=== PATIENT | male | born 1995 | race Hispanic/Latino ===

== ENCOUNTER 2021-02-25 09:04 | Emergency (ER) | payer SELFPAY ==
[~2021-02-25] VITALS: Ht 175.3 cm; Wt 73.7 kg
[2021-02-25] MEDS: DIPHENHYDRAMINE HCL 25 MG CAP PO NR ×2 (09:51→10:00)
[2021-02-25] MEDS ORDERED: DEXAMETHASONE SOD PHOS INJ 4 MG/ML VIAL ONE (09:58)
[2021-02-25] MEDS ORDERED: DIPHENHYDRAMINE HCL 25 MG CAP ONE (09:58)
[2021-02-25] MEDS ORDERED: DEXAMETHASONE 0.5 MG/5 ML ELIX PO NR (10:00)
[2021-02-25] MEDS ORDERED: AZITHROMYCIN250 MG PO (10:01)
[2021-02-25] MEDS ORDERED: PREDNISONE20 MG PO (10:05)
== END 2021-02-25 10:20 | disposition home or self-care (01) ==
LOC: FSED 09:36
DX: K12.2 Cellulitis and abscess of mouth (principal); F17.210 Nicotine dependence, cigarettes, uncomplicated
CPT/HCPCS: 83518; 99283; J1100